=== PATIENT | male | born 1960 | race Caucasian/White ===

== ENCOUNTER 2022-01-29 16:06 | Emergency (ER) | payer MEDICARE ==
[2022-01-29 16:53] LABS: HEMOGLOBIN 13.6 gm/dl (14.0-17.5); RED BLOOD COUNT 4.76 M/UL (4.20-5.50); WHITE BLOOD COUNT 19.3 K/UL (4.5-11.0)
== END 2022-01-29 22:25 | disposition short-term general hospital (02) ==
LOC: ER1 16:06
PROVIDERS: Family Medicine
DX: A41.9 Sepsis, unspecified organism (principal); I95.9 Hypotension, unspecified; Z86.19 Personal history of other infectious and parasitic diseases; I10 Essential (primary) hypertension; Z51.81 Encounter for therapeutic drug level monitoring
CPT/HCPCS: 80053; 82550; 82553; 83605; 84484; 85025; 85610; 86140; 87040; 93005; 96365; 96366; 96375; 99285; J2185; J3370; J7030